=== PATIENT | female | born 1960 | race Hispanic/Latino ===

== ENCOUNTER 2018-10-24 09:49 | Inpatient (IN) | payer BC ==
[2018-10-22 10:09] LABS: BASOPHILS % 0.7 % (0.0-1.0); EOSINOPHILS # (AUTO) 0.2 (0.0-0.4); HEMATOCRIT 28.5 % (34.2-44.1); HEMOGLOBIN 8.9 g/dL (12.0-16.0); LYMPHOCYTES # (AUTO) 0.9 (1.0-3.2); LYMPHOCYTES % 21.2 % (18.0-39.1); MEAN CORPUSCULAR HEMOGLOBIN 28.3 pg (28-32); MEAN CORPUSCULAR HGB CONC 31.2 g/dL (31-35); MEAN CORPUSCULAR VOLUME 90.5 fL (81-99); MONOCYTES # (AUTO) 0.4 (0.2-0.8); MONOCYTES % 10.7 % (4.4-11.3); NEUTROPHILS # (AUTO) 2.5 (2.1-6.9); NEUTROPHILS % 63.2 % (38.7-80.0); PLATELET COUNT 189 x10e3/uL (140-360); RED BLOOD COUNT 3.15 x10e6/uL (3.6-5.1); RED CELL DISTRIBUTION WIDTH 13.6 % (11.7-14.4)
[2018-10-22 10:26] LABS: INR 1.02; PROTHROMBIN TIME 13.9 seconds (11.9-14.5)
[2018-10-22 10:27] LABS: PARTIAL THROMBOPLASTIN TIME 26.4 seconds (23.8-35.5)
--- NOTE | 2018-10-22 10:31 | Diagnostic Imaging Report ---
EXAMINATION: PA and lateral views of the chest. COMPARISON: None CLINICAL HISTORY: Preoperative exam for hernia repair DISCUSSION: Lines/tubes: None. Lungs: The lungs are well inflated and clear. There is no evidence of pneumonia or pulmonary edema. Pleura: There is no pleural effusion or pneumothorax. Heart and mediastinum: The cardiomediastinal silhouette is normal. Bones and soft tissues: No acute bony abnormalities. Degenerative changes in the thoracic spine IMPRESSION: No acute cardiopulmonary abnormalities. Signed by: Dr. Mert Cross M.D. on 10/22/2018 10:28 AM
[2018-10-22 10:35] LABS: ANION GAP 12.2 mmol/L (8-16); CALCIUM 9.3 mg/dL (8.4-10.2); CREATININE, SERUM 1.1 mg/dL (0.57-1.11); POTASSIUM 4.2 mmol/L (3.5-5.1)
[~2018-10-24] VITALS: Ht 152.4 cm; Wt 110.7 kg
[~2018-10-24 09:49] MED LIST: ASPIRIN81 MG PO; HUMALOG100 UNIT/3 SC; JANUVIA100 MG PO; JANUVIA25 MG; LEVEMIR100 UNIT/1 SC; LOSARTAN-HCTZ1 EAC1 PO; LOVASTATIN40 MG PO; METFORMIN HCL500 MG PO; NIFEDIPINE10 MG PO; NOVOLOG100 UNIT/4 SQ; OMEPRAZOLE40 MG PO; SPIRONOLACTONE25 MG PO; TOPIRAMATE25 MG PO; WELCHOL625 MG PO; Z.0.HYZAAR 100-251 E PO; Z.0.LEVEMIR100 UNIT/ SQ; Z.2.METFORMIN HCL500 PO
--- OUTSIDE RECORDS SUMMARY | 2018-10-24 09:55 | XMS REPORT ---
Author Author [facility] Address Unknown Phone Unavailable Care Team Providers Care Application Support Engineer Name Role Phone Socorro ROGER Unavailable Unavailable Problems This patient has no known problems. Allergies, Adverse Reactions, Alerts This patient has no known allergies or adverse reactions. Medications This patient has no known medications. Results Test Description Test Time Test Comments Text Results Atomic Results Result Comments CHEST 2 VIEWS 2018-10-22 10:26:00 [place] [id number] Patient Name: ANDRA CARBAJAL MR #: [id number] : 1960 Age/Sex: 58/F Req #: [id number] Adm Physician: Ordered by: DIXON ROGER MD Report #: [id number] Location: OR Room/Bed: Procedure: [id number] DX/CHEST 2 VIEWS Exam Date: 10/22/18 Exam Time: 1010 REPORT STATUS: Signed EXAMINATION: PA and lateral views of the chest. COMPARISON: None CLINICAL HISTORY: Preoperative exam for hernia repair DISCUSSION: Lines/tubes: None. Lungs: The lungs are well inflated and clear. There is no evidence of pneumonia or pulmonary edema. Pleura: There is no pleural effusion or pneumothorax. Heart and mediastinum: The cardiomediastinal silhouette is normal. Bones and soft tissues: No acute bony abnormalities. Degenerative changes in the thoracic spine IMPRESSION: No acute cardiopulmonary abnormalities. Signed by: Dr. Ambar Belcher M.D. on 10/22/2018 10:28 AM Dictated By: AMBAR BELCHER MD [id number] Transcribed By: SHAHANA on 10/22/18 1028 COPY TO: DIXON ROGER MD
--- OUTSIDE RECORDS SUMMARY | 2018-10-24 09:55 | XMS REPORT | Continuity of Care Document ---
Author Author [facility] Interface Address Unknown Phone Unavailable Problems Problem Status Onset Date Classification Date Reported Comments Source Palpitation Active Diagnosis 01/07/2014 Brandon Oconnor Atherosclerosis of [place] arteries of the extremities with intermittent claudication Active Problem 01/07/2014 Brandon Oconnor Pre-syncope Active Diagnosis 01/07/2014 Brandon Oconnor Unspecified essential hypertension Active Problem 01/07/2014 Brandon Oconnor Abnormal EKG Active Problem 01/07/2014 Brandon Oconnor Diabetes with unspecified complication, type II or unspecified type, not stated as uncontrolled Active Problem 01/07/2014 Brandon Oconnor Morbid obesity Active Problem 01/07/2014 Brandon Oconnor Shortness of breath Active Problem 01/07/2014 Brandon Oconnor Medications Medication Details Route Status Patient Instructions Ordering Provider Order Date Source Tradjenta 1 tablet Orally Active 5 MG Orally Once a day Anastasia Oconnor Aspirin Adult Low Strength 1 tablet Orally Active 81 MG Orally Once a day Anastasia Oconnor Levemir 40am,98pm Subcutaneous Active 100 UNIT/ML Subcutaneous bid Anastasia Oconnor Welchol 3 tablets Orally Active 625 MG Orally Twice a day Anastasia Oconnor Losartan Potassium-HCTZ 1 tablet Orally Active 100-25 MG Orally Once a day Anastasia Oconnor Metformin HCl 2 tablets Orally Active 500 mg Orally Twice a day Anastasia Oconnor Zetia 1 tablet Orally Active 10 MG Orally Once a day Anastasia Oconnor NovoLog Flexpen 45 units Subcutaneous Active 100 UNIT/ML Subcutaneous TID Anastasia Oconnor Allergies, Adverse Reactions, Alerts Substance Category Reaction Severity Reaction type Status Date Reported Comments Source N.K.D.A. Adverse Reaction Info Not Available Adverse Reaction Active 12/30/2013 Brandon Oconnor Immunizations Immunization Date Given Site Status Last Updated Comments Source Results Order Name Results Value Reference Range Date Interpretation Comments Source Vital Signs Vital Sign Value Date Comments Source Weight 336 12/30/2013 Brandon Oconnor Height 60 12/30/2013 Brandon Oconnor Temperature Oral (F) 97.6 F 12/30/2013 Brandon Oconnor Heart Rate 85 12/30/2013 Brandon Oconnor Diastolic (mm Hg) 80 12/30/2013 Brandon Oconnor Systolic (mm Hg) 120 12/30/2013 Brandon Oconnor Encounters Location Location Details Encounter Type Encounter Number Reason For Visit Attending Provider ADM Date DC Date Status Source Brandon Oconnor MD [place] Unknown [id number] 12/30/2013 12/30/2013 Brandon Oconnor Procedures Procedure Code Date Perfomer Comments Source
--- OUTSIDE RECORDS SUMMARY | 2018-10-24 09:55 | XMS REPORT ---
Author Author Brandon Oconnor Organization [employer] Address Unknown Phone Unavailable Care Team Providers Care Supply Chain Tech Name Role Phone Brandon Oconnor CP Unavailable Allergies, Adverse Reactions, Alerts Substance Reaction Event Type N.K.D.A. Info Not Available Non Drug Allergy Encounters Encounter Location Date Unknown Brandon Oconnor MD [place] Dec 30, 2013 Problems Problem Type Condition ICD-9 Code Onset Dates Condition Status Assessment Palpitation 785.1 Active Problem Atherosclerosis of [place] arteries of the extremities with intermittent claudication 440.21 Active Assessment Pre-syncope 780.2 Active Problem Palpitation 785.1 Active Problem Unspecified essential hypertension 401.9 Active Problem Pre-syncope 780.2 Active Problem Abnormal EKG 794.31 Active Problem Diabetes with unspecified complication, type II or unspecified type, not stated as uncontrolled 250.90 Active Problem Morbid obesity 278.01 Active Problem Shortness of breath 786.05 Active Assessment Unspecified essential hypertension 401.9 Active Assessment Morbid obesity 278.01 Active Assessment Diabetes with unspecified complication, type II or unspecified type, not stated as uncontrolled 250.90 Active Assessment Abnormal EKG 794.31 Active Assessment Atherosclerosis of [place] arteries of the extremities with intermittent claudication 440.21 Active Assessment Shortness of breath 786.05 Active Medications Medication Code System Code Instructions Start Date End Date Status Dosage Tradjenta [facility] [address]-61 5 MG Orally Once a day Active 1 tablet Aspirin Adult Low Strength [facility] [address]-49 81 MG Orally Once a day Active 1 tablet [address] [facility] [address]-57 100 UNIT/ML Subcutaneous bid Active 40am,98pm Welchol [facility] [address]-11 625 MG Orally Twice a day Active 3 tablets Losartan Potassium-HCTZ [facility] [address]-96 100-25 MG Orally Once a day Active 1 tablet Metformin HCl [facility] [address]-95 500 mg Orally Twice a day Active 2 [address]et[address] [facility] [address]-82 10 MG Orally Once a day Active 1 tablet NovoLog Flexpen [facility] [address]-62 100 UNIT/ML Subcutaneous TID Active 45 units Social History Social History Element Qualifiers Date Reported Smoking . Dec 30, 2013 Alcohol Use No. Dec 30, 2013 Alcohol Screening: No. Did you have a drink containing alcohol in the past year?: No, Points: 0, Interpretation: Negative Dec 30, 2013 Tobacco Use: . Dec 30, 2013 Marital Status: . Dec 30, 2013 Do you drink alcohol? No. Dec 30, 2013 Vital Signs Date/Time: Dec 30, 2013 Weight 336 lbs Height 60 in Temperature 97.6 F Cardiac Monitoring Heart Rate 85 /min Blood Pressure Diastolic 80 mm Hg Blood Pressure Systolic 120 mm Hg Results Electrocardiogram (ECG) Summary Purpose [employer] Submission
[2018-10-24] MEDS ORDERED: INSULIN REGULAR, HUMAN 100 UNIT/1 ML 3ML VIAL ONE ×3 (10:28→20:00)
[2018-10-24 11:10] LABS: CALCIUM 9.2 mg/dL (8.4-10.2); CREATININE, SERUM 0.95 mg/dL (0.57-1.11)
[2018-10-24] MEDS ORDERED: BUPIVACAINE 0.25%/EPI 30ML SDV INJ ONE (12:52)
[2018-10-24] MEDS ORDERED: ALBUMIN 25% 12.5GM 50ML 50 ML IV ONE ×2 (16:50→16:52)
[2018-10-24] MEDS ORDERED: ROCURONIUM BROMIDE 10 MG/ML 5ML VIAL ONE (17:27)
[2018-10-24] MEDS ORDERED: LIDOCAINE HCL 2% LOCAL INJ 5 ML SDV VIAL INJ ONE (17:27)
[2018-10-24] MEDS ORDERED: DESFLURANE 240 ML BTL INH ONE (17:27)
[2018-10-24] MEDS ORDERED: CEFTRIAXONE SOD 1 GM VIAL ONE (17:27)
[2018-10-24] MEDS ORDERED: PROPOFOL IV EMULSION 10 MG/ML 20 ML VIAL ONE (17:27)
[2018-10-24] MEDS ORDERED: ACETAMINOPHEN 1000 MG/100 ML IV ONE (17:27)
[2018-10-24] MEDS ORDERED: ONDANSETRON HCL INJ 2MG/ML 2ML 2 MG/ML VIAL ONE (17:27)
[2018-10-24] MEDS ORDERED: KETAMINE HCL INJ 50 MG/ML 10 ML VIAL ONE (18:41)
[2018-10-24] MEDS ORDERED: MORPHINE SULFATE INJ 10 MG/ML ONE (18:41)
[2018-10-24] MEDS ORDERED: FENTANYL CITRATE/PF 100MCG/2 ML INJ ONE (18:41)
[2018-10-24] MEDS ORDERED: MIDAZOLAM HCL 2 MG/2 ML VIAL ONE (18:41)
[2018-10-24] MEDS ORDERED: ACETAMINOPHEN 1000 MG/100 ML IV PRN (19:30)
[2018-10-24] MEDS ORDERED: HYDROMORPHONE 0.2MG/ML-SOD CHL 30ML PCA SYRINGE IV PRN (19:30)
[2018-10-24] MEDS ORDERED: NALOXONE HCL INJ 0.4 MG/ML AMP IV PRN (19:30)
[2018-10-24] MEDS ORDERED: ONDANSETRON HCL INJ 2MG/ML 2ML 2 MG/ML VIAL IV PRN (19:30)
[2018-10-24] MEDS ORDERED: HYDROMORPHONE 2MG/ML 2 MG/ML ML ONE (19:41)
[2018-10-24] MEDS ORDERED: PROMETHAZINE HCL (IM) 25 MG/ML VIAL ONE (19:42)
[2018-10-24 19:56] LABS: HEMATOCRIT 24.2 % (34.2-44.1); HEMOGLOBIN 7.6 g/dL (12.0-16.0)
[2018-10-24] MEDS ORDERED: MEPERIDINE HCL INJ 25 MG/ML VIAL ONE (20:16)
[2018-10-24] MEDS: SODIUM CHLORIDE 0.9% 1000ML 1,000 ML IV SCH (20:41)
[2018-10-24 20:50] VITALS: BP 138/75
[2018-10-24] MEDS: SODIUM CHLORIDE 0.9% 250ML IRRIG IR SCH (20:50)
--- NOTE | 2018-10-24 20:50 | NUR ---
RECEIVED PATIENT FROM PACU, TRANSFERRED PER BED, PATIENT LETHARGIC BUT RESPONSE TO HER NAME. WOOD PANEL INSPECTOR PUMP INTACT, 02 PER NC REMAIN AT 3L. NGT TO NARE REMAIN INTACT TO LOW INTERMITTENT SUCTION,N DRESSING REMAIN INTACT SECURED WITH ABDOMINAL BINDER. X2 FABY DRAINS REMAIN INTACT. FAYE CATHETER REMAIN INTACT DRAINING YELLOW URINE. IV TO RIGHT HAND INFUSING WITH NORMAL SALINE. CALL LIGHT IN REACH. FAMILY AT THE BEDSIDE. WILL CONTINUE TO MONITOR.
[2018-10-24] MEDS: PANTOPRAZOLE 40 MG 10ML VIAL IV SCH (21:46)
[2018-10-24 22:48] VITALS: BP 138/75
[2018-10-25] MEDS ORDERED: CEFTRIAXONE SOD 2 GM VIAL ONE (00:27)
[2018-10-25] MEDS ORDERED: SODIUM CHLORIDE 0.9% 100 ML 100 ML ONE (00:29)
[2018-10-25] MEDS: INSULIN REGULAR, HUMAN 100 UNIT/1 ML 3ML VIAL SQ SCH ×4 (00:41→17:16)
[2018-10-25] MEDS: CEFTRIAXONE SOD 2 GM/NS 100 ML 100 ML IV SCH ×2 (00:41→21:07)
[2018-10-25 00:51] VITALS: BP 122/69
--- NOTE | 2018-10-25 00:53 | NUR ---
OBSERVED URINE OUTPUT DECREASED, CALLED DR. ROGER AND RECEIVED NEW ORDERS.
[2018-10-25] MEDS: SODIUM CHLORIDE 0.9% 250ML IRRIG IR SCH ×6 (01:07→20:36)
[2018-10-25] MEDS ORDERED: LACTATED RINGER'S 1,000 ML IV ONE (01:15)
[2018-10-25] MEDS: CLINDAMYCIN PHOS 900MG/ 50ML 50 ML IV SCH ×4 (01:29→17:52)
[2018-10-25] MEDS: SODIUM CHLORIDE 0.9% 1000ML 1,000 ML IV SCH ×3 (03:26→21:06)
[2018-10-25 05:11] VITALS: BP 116/56
--- NOTE | 2018-10-25 06:49 | NUR ---
CALLED AND INFORMED OF PATIENTS OUTPUT, INFORM TO GIVE THE REMAINING 500CC OF LR. ORDERS CARRIED OUT. PATIENT CONTINUE RESTING, HOB REMAIN ELEVATED, NGT TO RIGHT NARE TO LCS. CALL LIGHT IN REACH. FABY DRAINS REMAIN INTACT. FAMILY REMAIN AT THE BEDSIDE.
--- NOTE | 2018-10-25 07:10 | NUR ---
rounds done, report given to am nurse, patient continue resting, bolus continue infusing.
[2018-10-25 07:30] VITALS: BP 119/53
[2018-10-25 08:58] LABS: BASOPHILS % 0.2 % (0.0-1.0); EOSINOPHILS % 0.1 % (0.0-6.0); LYMPHOCYTES # (AUTO) 0.7 (1.0-3.2); LYMPHOCYTES % 6.8 % (18.0-39.1); MEAN CORPUSCULAR HEMOGLOBIN 29.1 pg (28-32); MEAN CORPUSCULAR HGB CONC 31.7 g/dL (31-35); MONOCYTES # (AUTO) 0.7 (0.2-0.8); NEUTROPHILS # (AUTO) 8.8 (2.1-6.9); NEUTROPHILS % 85.4 % (38.7-80.0); PLATELET COUNT 162 x10e3/uL (140-360); RED BLOOD COUNT 2.37 x10e6/uL (3.6-5.1)
[2018-10-25 09:04] LABS: HEMOGLOBIN 6.9 g/dL (12.0-16.0)
[2018-10-25 09:05] LABS: HEMATOCRIT 21.8 % (34.2-44.1)
[2018-10-25 09:22] LABS: ANION GAP 10.2 mmol/L (8-16); CALCIUM 8.2 mg/dL (8.4-10.2); CREATININE, SERUM 1.25 mg/dL (0.57-1.11)
--- NOTE | 2018-10-25 09:28 | NUR ---
informed dr perze of h/h 6.9, orders received and entered
[2018-10-25] MEDS ORDERED: SODIUM CHLORIDE 0.9% 250ML 250 ML IV NR (09:30)
[2018-10-25 09:31] LABS: POTASSIUM 5.2 mmol/L (3.5-5.1)
[2018-10-25 11:00] VITALS: BP 128/61
[2018-10-25] MEDS ORDERED: SODIUM CHLORIDE 0.9% 250ML 250 ML ONE (14:07)
[2018-10-25 15:12] VITALS: BP 138/61
[2018-10-25] MEDS ORDERED: HYDROMORPHONE 0.2MG/ML-SOD CHL 30ML PCA SYRINGE IV PRN (17:00)
[2018-10-25 19:20] VITALS: BP 143/57
[2018-10-25] MEDS: PANTOPRAZOLE 40 MG 10ML VIAL IV SCH (21:06)
[2018-10-25] MEDS ORDERED: CEFTRIAXONE SOD 1 GM/NS 50 ML 100 ML IV ONE (21:08)
[2018-10-26] VITALS (8 sets, daily range): BP systolic 118–154; BP diastolic 67–90
[2018-10-26] MEDS: INSULIN REGULAR, HUMAN 100 UNIT/1 ML 3ML VIAL SQ SCH ×4 (01:29→17:32)
[2018-10-26] MEDS: SODIUM CHLORIDE 0.9% 250ML IRRIG IR SCH ×3 (01:29→07:18)
[2018-10-26] MEDS: CLINDAMYCIN PHOS 900MG/ 50ML 50 ML IV SCH ×3 (01:34→17:29)
[2018-10-26] MEDS: SODIUM CHLORIDE 0.9% 1000ML 1,000 ML IV SCH ×3 (03:26→18:08)
--- NOTE | 2018-10-26 06:00 | NUR ---
quezada removed as planned, no signs of infection, cath. intact. monitoring for post quezada removal void.
--- NOTE | 2018-10-26 07:00 | NUR ---
patient endorsed to next shift for continuity of care.
[2018-10-26 08:14] LABS: BASOPHILS % 0.3 % (0.0-1.0); EOSINOPHILS % 0.4 % (0.0-6.0); HEMATOCRIT 28.7 % (34.2-44.1); HEMOGLOBIN 9.3 g/dL (12.0-16.0); LYMPHOCYTES # (AUTO) 0.7 (1.0-3.2); LYMPHOCYTES % 7.7 % (18.0-39.1); MEAN CORPUSCULAR HEMOGLOBIN 29.6 pg (28-32); MEAN CORPUSCULAR HGB CONC 32.4 g/dL (31-35); MEAN CORPUSCULAR VOLUME 91.4 fL (81-99); MONOCYTES # (AUTO) 0.6 (0.2-0.8); MONOCYTES % 6.5 % (4.4-11.3); NEUTROPHILS # (AUTO) 7.8 (2.1-6.9); NEUTROPHILS % 84.1 % (38.7-80.0); PLATELET COUNT 125 x10e3/uL (140-360); RED BLOOD COUNT 3.14 x10e6/uL (3.6-5.1); RED CELL DISTRIBUTION WIDTH 14.3 % (11.7-14.4)
[2018-10-26 08:22] LABS: ANION GAP 10.1 mmol/L (8-16); CALCIUM 8.5 mg/dL (8.4-10.2); POTASSIUM 4.1 mmol/L (3.5-5.1)
[2018-10-26] MEDS: ACETAMINOPHEN 1000 MG/100 ML IV PRN ×2 (08:27→20:02)
[2018-10-26] MEDS ORDERED: HYDROMORPHONE 2MG/ML 2 MG/ML ML IV PRN (10:45)
--- NOTE | 2018-10-26 11:16 | NUR ---
patient assisted with ambulating in hallway with walker, no complaints of pain upon ambulation, will continue to monitor
--- NOTE | 2018-10-26 13:23 | NUR ---
RECEIVED PATIENT FROM [facility]. PATIENT A/O X3, EVEN RESPIRATIONS ON RA. BOWEL SOUNDS ACTIVE, NO EDEMA. ABDOMINAL DRESSING INTACT. [address] SCD'S BILATERALLY. RIGHT HAND 20 GAUGE IV INTACT/PATENT WITH NS @ 100 CC/HR. PATIENT NPO AT THIS TIME. AMBULATORY WITH STANDBY ASSIST. NO DISCOMFORT. ASSISTED PATIENT ONTO RECLINER. CALL LIGHT IN REACH, AT BEDSIDE WILL CONTINUE TO MONITOR PATIENT.
[2018-10-26] MEDS: PANTOPRAZOLE 40 MG 10ML VIAL IV SCH (19:30)
[2018-10-26] MEDS: CEFTRIAXONE SOD 2 GM/NS 100 ML 100 ML IV SCH (20:00)
--- NOTE | 2018-10-26 20:00 | NUR ---
INITIAL ASSESSMENT COMPLETE, NO DISTRESS NOTED, HELPED TO BATHROOM AND BACK TO CHAIR WITH WALKER, SCD'S ON PT, MIDLINE INCISION INTACT, CLEAN AND DRY DRESSING, FABY DRAIN X 2 WITH SEROUS SANGUINIS FLUIDS, TELE ON PT, NO NGT, ABD BINDER IN PLACE, NO GAS OR BM NOTED, FAMILY AT BEDSIDE, CALL LIGHT IN REACH
[2018-10-26] MEDS: BISACODYL 10 MG SUPP PR SCH (20:16)
[2018-10-27] VITALS (7 sets, daily range): BP systolic 145–167; BP diastolic 63–81
[2018-10-27] MEDS: CLINDAMYCIN PHOS 900MG/ 50ML 50 ML IV SCH ×3 (02:00→17:06)
[2018-10-27] MEDS: INSULIN REGULAR, HUMAN 100 UNIT/1 ML 3ML VIAL SQ SCH ×4 (05:45→18:39)
[2018-10-27 05:58] LABS: BASOPHILS % 0.2 % (0.0-1.0); EOSINOPHILS # (AUTO) 0.2 (0.0-0.4); EOSINOPHILS % 2.1 % (0.0-6.0); HEMATOCRIT 27.4 % (34.2-44.1); HEMOGLOBIN 8.7 g/dL (12.0-16.0); LYMPHOCYTES # (AUTO) 0.6 (1.0-3.2); LYMPHOCYTES % 7.6 % (18.0-39.1); MEAN CORPUSCULAR HEMOGLOBIN 29.3 pg (28-32); MEAN CORPUSCULAR HGB CONC 31.8 g/dL (31-35); MEAN CORPUSCULAR VOLUME 92.3 fL (81-99); MONOCYTES # (AUTO) 0.4 (0.2-0.8); MONOCYTES % 4.8 % (4.4-11.3); NEUTROPHILS % 84.7 % (38.7-80.0); PLATELET COUNT 128 x10e3/uL (140-360); RED BLOOD COUNT 2.97 x10e6/uL (3.6-5.1); RED CELL DISTRIBUTION WIDTH 14.1 % (11.7-14.4)
[2018-10-27 06:18] LABS: ANION GAP 13.7 mmol/L (8-16); BLOOD UREA NITROGEN 15 mg/dL (7-26); BUN/CREATININE RATIO 18 (6-25); CALCIUM 8.5 mg/dL (8.4-10.2); CARBON DIOXIDE 19 mmol/L (22-29); CHLORIDE 105 mmol/L (98-107); CREATININE, SERUM 0.83 mg/dL (0.57-1.11); EST GLOMERULAR FILTRATION RATE > 60 ML/MIN (60-); GLUCOSE 255 mg/dL (74-118); POTASSIUM 3.7 mmol/L (3.5-5.1); SODIUM 134 mmol/L (136-145)
--- NOTE | 2018-10-27 06:20 | NUR ---
PT AWAKEN EASILY, DRAINS DRAINED, ABD IN PLACE, DIAPER IN PLACE, CALL LIGHT IN REACH, VS STABLE, PT UP AND DOWN ALL NIGHT TO BATHROOM WITH ASSIST, [facility]
[2018-10-27] MEDS: SODIUM CHLORIDE 0.9% 1000ML 1,000 ML IV SCH ×2 (06:34→17:06)
--- NOTE | 2018-10-27 07:10 | NUR ---
BEDSIDE ROUNDS COMPLETE NO DISTRESS NOTED, UPDATED ON POC VOICED UNDERSTANDING, DENIES PAIN AT THIS TIME, DSG TO ABDOMEN C/D/I,ABDOMEN BINDER IN TACT, FABY DRAINS X 2 WITH SEROUS DRAINAGE NOTED,NO OTHER CO VOICED CALL LIGHT IN REACH WILL CONTINUE OT MONITOR
[2018-10-27] MEDS ORDERED: BISACODYL 10 MG SUPP PR ONE (10:13)
[2018-10-27] MEDS: BISACODYL 10 MG SUPP PR SCH ×2 (10:19→21:32)
--- NOTE | 2018-10-27 19:15 | NUR ---
Rounding done & report received. Patient sitting in recliner, A&Ox4, respirations even & unlabored no distress noted. Tele in place. IV fluids running to R hand, no infiltration noted. Mid lower abdomen dressing C/D/I. FABY drains x2 & abdominal binder in place. Patient denies any issues or needs at this time. Call light within reach.
[2018-10-27] MEDS: PANTOPRAZOLE 40 MG 10ML VIAL IV SCH (20:29)
[2018-10-27] MEDS: CEFTRIAXONE SOD 2 GM/NS 100 ML 100 ML IV SCH (20:29)
[2018-10-28] VITALS (7 sets, daily range): BP systolic 147–159; BP diastolic 64–82
[2018-10-28] MEDS: INSULIN REGULAR, HUMAN 100 UNIT/1 ML 3ML VIAL SQ SCH ×5 (00:41→23:00)
[2018-10-28] MEDS: CLINDAMYCIN PHOS 900MG/ 50ML 50 ML IV SCH ×3 (02:36→17:57)
[2018-10-28] MEDS: SODIUM CHLORIDE 0.9% 1000ML 1,000 ML IV SCH ×2 (04:26→13:57)
--- NOTE | 2018-10-28 07:00 | NUR ---
BEDSIDE SHIFT REPORT FROM CHRISTINE MCCALL. PT DENIES NEEDS AT THIS TIME.
[2018-10-28] MEDS: BISACODYL 10 MG SUPP PR SCH ×2 (08:43→21:00)
--- NOTE | 2018-10-28 10:15 | NUR ---
PT HAS HAD A MEDIUM,HARD, FORMED BM.
[2018-10-28] MEDS: METFORMIN HCL 500 MG TAB PO SCH (17:57)
--- NOTE | 2018-10-28 19:15 | NUR ---
Rounding done & report received. Patient is sitting in recliner awake & alert. Respirations even & unlabored, no distress noted. IV fluids running to right hand, no infiltration noted. Patient denies any issues or needs at this time. Call light within reach.
[2018-10-28] MEDS: PANTOPRAZOLE 40 MG 10ML VIAL IV SCH (19:53)
[2018-10-28] MEDS: CEFTRIAXONE SOD 2 GM/NS 100 ML 100 ML IV SCH (19:53)
[2018-10-29] VITALS (8 sets, daily range): BP systolic 133–159; BP diastolic 62–72
[2018-10-29] MEDS: CLINDAMYCIN PHOS 900MG/ 50ML 50 ML IV SCH ×3 (02:30→17:23)
[2018-10-29] MEDS: SODIUM CHLORIDE 0.9% 1000ML 1,000 ML IV SCH (05:25)
--- NOTE | 2018-10-29 07:00 | NUR ---
BEDSIDE SHIFT REPORT FROM CHRISTINE MCCALL. PT DENIES NEEDS AT THIS TIME.
[2018-10-29] MEDS: INSULIN REGULAR, HUMAN 100 UNIT/1 ML 3ML VIAL SQ SCH ×3 (07:30→17:24)
[2018-10-29] MEDS: BISACODYL 10 MG SUPP PR SCH (08:00)
[2018-10-29] MEDS: METFORMIN HCL 500 MG TAB PO SCH ×3 (08:32→17:22)
[2018-10-29] MEDS ORDERED: NIFEDIPINE ER30 M1 PO (08:49)
[2018-10-29] MEDS ORDERED: NIFEDIPINE 10 MG CAP PO SCH (09:00)
[2018-10-29] MEDS: NIFEDIPINE CR 30 MG TAB PO SCH (09:05)
[2018-10-29] MEDS ORDERED: NON-FORMULARY MEDICATION (Insulin Detemir (Levemir) 60 UNITS) SC SCH (17:00)
[2018-10-29] MEDS: PANTOPRAZOLE 40 MG 10ML VIAL IV SCH (19:52)
[2018-10-29] MEDS: CEFTRIAXONE SOD 2 GM/NS 100 ML 100 ML IV SCH (20:10)
[2018-10-29] MEDS: INSULIN GLARGINE 100 UNITS/ML VIAL SQ SCH (21:04)
[2018-10-30 00:32] VITALS: BP 106/50
[2018-10-30] MEDS: SODIUM CHLORIDE 0.9% 1000ML 1,000 ML IV SCH (01:37)
[2018-10-30] MEDS: CLINDAMYCIN PHOS 900MG/ 50ML 50 ML IV SCH ×3 (01:37→17:41)
[2018-10-30 04:00] VITALS: BP 131/63
[2018-10-30] MEDS: HYDROCODONE/APAP 7.5MG-325MG 1 EA TAB PO PRN ×2 (04:57→13:20)
--- NOTE | 2018-10-30 06:50 | NUR ---
REPORT GIVEN TO THE ONCOMING RN.WALKING ROUNDS DONE.STABLE CONDITION.
--- NOTE | 2018-10-30 07:10 | NUR ---
PT RESTING IN RECLINER COMFORTABLY AA0X3 PT IS IN NO S.S OF DISTRESS. DENIES PAIN AT THIS TIME PT IS AT BEDSIDE PT IN ON RA TOLERATING WELL. NO SOB NOTED PT HAS A RIGHT HAND 20 WITH NS AST 50CC.HR SITE IS CLEAN AND DRY PT ABD IS DRESSED , DRY AND INTACT , SECURED WITH ABD BINDER TWO FABY DRAINS SECURED TO BINDER AT THIS TIME PT IS ON ADA DIET, PASSING GAS WILL CONTINUE TO MONITOR PT CLOSELY, SIDE RAILSX2, BED WHEELS LOCKED CALL LIGHT IS WITHIN EASY REACH, INSTRUCTED TO CALL FOR ASSISTANCE IF NEEDED
[2018-10-30 07:41] VITALS: BP 140/60
[2018-10-30 08:04] VITALS: BP 140/60
[2018-10-30] MEDS: NIFEDIPINE CR 30 MG TAB PO SCH (08:04)
[2018-10-30] MEDS: METFORMIN HCL 500 MG TAB PO SCH ×3 (08:04→17:08)
[2018-10-30] MEDS: INSULIN GLARGINE 100 UNITS/ML VIAL SQ SCH (08:05)
[2018-10-30 11:44] VITALS: BP 133/63
[2018-10-30 16:49] VITALS: BP 118/57
--- NOTE | 2018-10-30 20:17 | NUR ---
IS ROUNDING.DISCHARGE ASSESSMENT DONE.STABLE CONDITION.ALL THE DISCHARGE DOCUMENTS GIVEN TO THE PT.EDUCATION GIVEN ABOUT POST OP PAIN AND CARE OF STU AND STITCHES AND FABY DRAIN.VERBALIZED UNDERSTANDING.SENDING ALL THE BELONGINGS WITH THE PT.
--- NOTE | 2018-10-30 20:20 | NUR ---
Pt is off the unit in a wheel chair in stable condition.
== END 2018-10-30 20:17 | disposition home or self-care (01) | DRG 908 ==
LOC: OR 09:49 → IMCU 20:59 → MED/SURG 10-26 13:04
PROVIDERS: ADMIT Surgery; ATTEND Surgery
PROC: 0WPF0JZ Removal of Synthetic Substitute from Abdominal Wall, Open Approach (ICD-10-PCS; principal; 2018-10-24 11:00)
PROC: 0DT80ZZ Resection of Small Intestine, Open Approach (ICD-10-PCS; 2018-10-24 11:00)
PROC: 0WUF0JZ Supplement Abdominal Wall with Synthetic Substitute, Open Approach (ICD-10-PCS; 2018-10-24 11:00)
PROC: 0DNW0ZZ Release Peritoneum, Open Approach (ICD-10-PCS; 2018-10-24 11:00)
PROC: 30233N1 Transfusion of Nonautologous Red Blood Cells into Peripheral Vein, Percutaneous Approach (ICD-10-PCS; 2018-10-25)
DX: T85.79XA Infection and inflammatory reaction due to other internal prosthetic devices, implants and grafts, initial encounter (principal); D62 Acute posthemorrhagic anemia; I10 Essential (primary) hypertension; E11.9 Type 2 diabetes mellitus without complications; K43.2 Incisional hernia without obstruction or gangrene; N73.6 Female pelvic peritoneal adhesions (postinfective)
CPT/HCPCS: 36415; 71046; 80048; 82948; 85014; 85018; 85025; 85610; 85730; 86850; 86900; 86920; 87071; 87075; 87186; 87205; 88304; 88305; 88307; 93005; J0696; J1815; J2001; J2175; J2250; J2270; J2405; J2550; J7030; J7050; J7121; P9016